=== PATIENT | female | born 1955 | race Caucasian/White ===

== ENCOUNTER 2017-10-10 15:36 | Inpatient (IN) | payer BC, OTHER ==
[2017-10-10] MEDS ORDERED: Sodium Chloride 0.9% 10 ML Syringe FLUSH PRN (18:09)
[2017-10-10] MEDS ORDERED: Azithromycin 500 MG in Sodium Chloride 0.9% 250 ML IV ONE (18:14)
[2017-10-10] MEDS ORDERED: Albuterol/Ipratropium 3.0-0.5 MG/3 ML Neb Soln NEB ONE (18:14)
[2017-10-10] MEDS ORDERED: cefTRIAXone 1 GM Vial IVPUSH ONE (18:14)
--- NOTE | 2017-10-10 18:41 | EDM.PDOC ---
Scribed by Kaley Montoya 10/10/17 [id number] for Pal López MD ED HPI GENERAL MEDICAL PROBLEM - General Chief Complaint: Fever Stated Complaint: SICK [id number] Time Seen by Provider: 10/10/17 17:07 Source of Information: Reports: Patient, RN, RN Notes Reviewed History Limitations: Reports: No Limitations - History of Present Illness INITIAL COMMENTS - FREE TEXT/NARRATIVE: Patient presents with 4 day duration of worsening cough with recurrent fevers. Patient reports sharp chest pains with cough only. The cough is nonproductive. She reports feeling fatigued and has mildly decreased appetite.She also admits to sore throat for the past couple of days. Denies headache, abdominal pain, nausea, vomiting or diarrhea. Duration: Getting Worse Location: Reports: Chest Quality: Reports: Ache Severity: Moderate Improves with: Reports: None Worsens with: Reports: None Associated Symptoms: Reports: No Other Symptoms - Related Data Allergies Allergy/AdvReac Type Severity Reaction Status Date / Time codeine Allergy Cannot Verified 10/10/17 16:52 Remember letrozole Allergy Rash Verified 10/10/17 16:52 Home Meds: Home Meds Aspirin [Aspirin EC] 325 mg PO DAILY 05/21/14 [History] Calcium Carb & Citrate/Vit D3 [Calcium + Vitamin D3 Caplet] 1 tab PO DAILY 05/21 [History] Diltiazem HCl [Diltiazem ER] 1 tab PO DAILY 05/21/14 [History] Tamoxifen [Nolvadex] 1 tab PO DAILY 05/21/14 [History] atorvaSTATin Calcium [Atorvastatin Calcium] 1 tab PO DAILY 05/21/14 [History] Ibuprofen 200 mg PO ASDIRECTED PRN 10/10/17 [History] Past Medical History HEENT History: Reports: None Cardiovascular History: Reports: Afib, High Cholesterol Respiratory History: Reports: None Gastrointestinal History: Reports: None Genitourinary History: Reports: None Musculoskeletal History: Reports: None Neurological History: Reports: None Psychiatric History: Reports: None Endocrine/Metabolic History: Reports: None Hematologic History: Reports: None Immunologic History: Reports: None Oncologic (Cancer) History: Reports: Basal Cell Carcinoma Dermatologic History: Reports: None - Infectious Disease History Infectious Disease History: Reports: Chicken Pox, Measles, Mumps - Past Surgical History Head Surgeries/Procedures: Reports: None Female Surgical History: Reports: Mastectomy Social & Family History - Family History Family Medical History: Noncontributory - Tobacco Use Smoking Status *Q: Former Smoker Tobacco Use Within Last Twelve Months: Cigarettes Years of Tobacco use: 20 Packs/Tins Daily: 0.5 Month Tobacco Last Used: august Second Hand Smoke Exposure: No - Caffeine Use Caffeine Use: Reports: None - Alcohol Use Days Per Week of Alcohol Use: 3 Number of Drinks Per Day: 3 Total Drinks Per Week: 9 - Recreational Drug Use Recreational Drug Use: No ED ROS GENERAL - Review of Systems Review Of Systems: ROS reveals no pertinent complaints other than HPI. ED EXAM, GENERAL - Physical Exam Exam: See Below Exam Limited By: No Limitations General Appearance: Alert, WD/WN, No Apparent Distress Eye Exam: Bilateral Eye: Normal Inspection Ears: Normal External Exam, Normal Canal, Hearing Grossly Normal, Normal TMs Nose: Normal Inspection, Normal Mucosa, No Blood Throat/Mouth: Normal Lips, Normal Teeth, Normal Gums, Normal Voice, No Airway Compromise, Other (mild pharyngeal erythema) Head: Atraumatic, Normocephalic Neck: Normal Inspection, Supple, Non-Tender, Full Range of Motion Respiratory/Chest: No Respiratory Distress, No Accessory Muscle Use, Decreased Breath Sounds (in bilateral bases with bibasilar rhonchi left greater than right. ), Crackles, Rhonchi (bibasilar), Wheezing, Prolonged Expiration Cardiovascular: Normal Peripheral Pulses, Regular Rate, Rhythm, No Edema, No Gallop, No JVD, No Murmur, No Rub GI/Abdominal: Normal Bowel Sounds, Soft, Non-Tender, No Organomegaly, No Distention, No Abnormal Bruit, No Mass (Female) Exam: Deferred Rectal (Female) Exam: Deferred Back Exam: Normal Inspection, Full Range of Motion, NT Extremities: Normal Inspection, Normal Range of Motion, Non-Tender, Normal Capillary Refill, No Pedal Edema Neurological: Alert, Oriented, CN II-XII Intact, Normal Cognition, Normal Gait, Normal Reflexes, No Motor/Sensory Deficits Psychiatric: Normal Affect, Normal Mood Skin Exam: Warm, Dry, Intact, Normal Color, No Rash Course - Vital Signs Last Recorded V/S: Last Vital Signs Temp 36.6 C 10/10/17 16:48 Pulse 80 10/10/17 18:14 Resp 16 10/10/17 16:48 BP 139/69 10/10/17 16:48 Pulse Ox 98 10/10/17 18:14 - Orders/Labs/Meds Orders: Active Orders 24 hr Category Date Time Status Peripheral IV Care [RC] . DIRECTED Care 10/10/17 18:09 Active RT Aerosol Therapy [RC] ASDIRECTED Care 10/10/17 18:14 Active Chest 2V [CR] Stat Exams 10/10/17 17:55 Taken CULTURE BLOOD [BC] Stat Lab 10/10/17 18:20 Received CULTURE STREP A CONFIRMATION [] Stat Lab 10/10/17 17:05 Results STREP SCRN A RAPID W CULT CONF [] Stat Lab 10/10/17 17:05 Results Azithromycin [Zithromax] 500 mg Med 10/10/17 18:14 Active Sodium Chloride 0.9% [Normal Saline] 250 ml IV ONETIME Sodium Chloride 0.9% [Saline Flush] Med 10/10/17 18:09 Active 10 ml FLUSH ASDIRECTED PRN Peripheral IV Insertion Adult [OM.PC] Stat Oth 10/10/17 18:09 Ordered Medication Orders Azithromycin 500 mg/ Sodium (Chloride) 250 mls @ 250 mls/hr IV ONETIME ONE Stop: 10/10/17 19:13 Last Admin: 10/10/17 18:56 Dose: 250 mls/hr Sodium Chloride (Saline Flush) 10 ml FLUSH ASDIRECTED PRN PRN Reason: Keep Vein Open Last Admin: 10/10/17 18:56 Dose: 10 ml Labs: Laboratory Tests 10/10/17 10/10/17 10/10/17 Range/Units 18:20 18:20 18:20 WBC 10.1 H (5.0-10.0) 10^3/uL RBC 4.06 L (4.2-5.4) 10^6/uL Hgb 13.4 (12.0-16.0) g/dL Hct 39.9 (37.0-47.0) % MCV 98.3 (80-100) fL MCH 33.0 (27.0-34.0) pg MCHC 33.6 (33.0-35.0) g/dL Plt Count 141 L (150-450) 10^3/uL Neut % (Auto) 71.1 (42.2-75.2) % Lymph % (Auto) 18.1 L (20.5-50.1) % Wirt % (Auto) 7.4 (2-8) % Eos % (Auto) 3.0 (1.0-3.0) % Baso % (Auto) 0.4 (0.0-1.0) % Sodium 134 L (135-145) mmol/L Potassium 3.7 (3.6-5.0) mmol/L Chloride 101 (101-111) mmol/L Carbon Dioxide 22.0 (21.0-31.0) mmol/L Anion Gap 14.7 BUN 9 (7-18) mg/dL Creatinine 0.7 (0.6-1.3) mg/dL Est Cr Clr Drug Dosing 77.01 mL/min Estimated GFR (MDRD) > 60 BUN/Creatinine Ratio 12.85 Glucose 103 (74-105) mg/dL Lactic Acid 1.0 (0.5-2.2) mmol/L Calcium 8.8 (8.4-10.2) mg/dl Total Bilirubin 1.0 (0.2-1.0) mg/dL AST 52 H (10-42) IU/L ALT 55 (10-60) IU/L Alkaline Phosphatase 51 (42-121) IU/L Total Protein 7.5 (6.7-8.2) g/dl Albumin 4.1 (3.2-5.5) g/dl Globulin 3.4 Albumin/Globulin Ratio 1.21 Rapid strep: Negative. Meds: Medications Generic Name Dose Route Start Last Admin Trade Name Freq PRN Reason Stop Dose Admin Azithromycin 500 mg/ Sodium 250 mls @ 250 mls/hr 10/10/17 18:14 10/10/17 18: 56 Chloride IV 10/10/17 19:13 250 mls/hr ONETIME ONE Administration Sodium Chloride 10 ml 10/10/17 18:09 10/10/17 18:56 Saline Flush FLUSH 10 ml ASDIRECTED PRN Administration Keep Vein Open Discontinued Medications Generic Name Dose Route Start Last Admin Trade Name Freq PRN Reason Stop Dose Admin Albuterol/Ipratropium 3 ml 10/10/17 18:14 10/10/17 18:20 Duoneb 3.0-0.5 Mg/3 Ml NEB 10/10/17 18:15 3 ml ONETIME ONE Administration Ceftriaxone Sodium 1 gm 10/10/17 18:14 10/10/17 18:55 Rocephin IVPUSH 10/10/17 18:15 1 gm ONETIME ONE Administration - Radiology Interpretation Free Text/Narrative:: Chest x-ray: SSN: -- : [id number] Study: XR CHEST 2 VIEWS Requesting Physician: Pal López Images: 2 Addl Studies: Provided Clinical History: Contrast: Contrast Medium: Contrast Amount: Contrast Method: CONFIDENTIALITY STATEMENT This report is intended only for use by the referring physician, and only in accordance with law. If you received this in error, call [phone]. Page 1 of 1 EXAM: XR Chest, 2 Views CLINICAL HISTORY: 62 years old, female; Signs and symptoms; Cough and dyspnea; Symptoms not specified TECHNIQUE: Frontal and lateral views of the chest. COMPARISON: No relevant prior studies available. FINDINGS: Lungs: The lungs hyperinflated. There is no focal consolidation, pleural fluid or pneumothorax. Pleural space: See above. Heart: The heart is normal in size. The thoracic aorta is normal in caliber. Mediastinum: Unremarkable. Bones/joints: Osseous structures are normal for age. IMPRESSION: COPD. No acute process. Thank you for allowing us to participate in the care of your patient. Dictated and Authenticated by: Eliza Cooley MD 10/10/2017 6:34 PM Central Time ([place] & [place]) Departure - Departure Time of Disposition: 19:05 (admitted to Dr. Aguilar) Disposition: Admitted As Inpatient 65 Condition: Serious Clinical Impression: Acute exacerbation of chronic obstructive pulmonary disease (COPD), Hypoxia Pneumonia Qualifiers: Pneumonia type: due to unspecified organism Laterality: left Lung location: lower lobe of lung Qualified Code(s): J18.1 - Lobar pneumonia, unspecified organism - Discharge Information Forms: ED Department Discharge - My Orders Last 24 Hours: My Active Orders 10/10/17 17:05 CULTURE STREP A CONFIRMATION [RM] Stat STREP SCRN A RAPID W CULT CONF [RM] Stat 10/10/17 17:55 Chest 2V [CR] Stat 10/10/17 18:09 Peripheral IV Care [RC] . DIRECTED Sodium Chloride 0.9% [Saline Flush] 10 ml FLUSH ASDIRECTED PRN Peripheral IV Insertion Adult [OM.PC] Stat 10/10/17 18:14 RT Aerosol Therapy [RC] ASDIRECTED Azithromycin [Zithromax] 500 mg Sodium Chloride 0.9% [Normal Saline] 250 ml IV ONETIME 10/10/17 18:20 CULTURE BLOOD [BC] Stat - Assessment/Plan Last 24 Hours: My Active Orders 10/10/17 17:05 CULTURE STREP A CONFIRMATION [RM] Stat STREP SCRN A RAPID W CULT CONF [RM] Stat 10/10/17 17:55 Chest 2V [CR] Stat 10/10/17 18:09 Peripheral IV Care [RC] . DIRECTED Sodium Chloride 0.9% [Saline Flush] 10 ml FLUSH ASDIRECTED PRN Peripheral IV Insertion Adult [OM.PC] Stat 10/10/17 18:14 RT Aerosol Therapy [RC] ASDIRECTED Azithromycin [Zithromax] 500 mg Sodium Chloride 0.9% [Normal Saline] 250 ml IV ONETIME 10/10/17 18:20 CULTURE BLOOD [BC] Stat I have read and agree with the documentation that has been completed regarding this visit. By signing this record, I attest that the documentation was completed in my physical presence and is an accurate record of the encounter.
[2017-10-10 18:48] LABS: CHLORIDE,CL 101 mmol/L (101-111); SODIUM,NA 134 mmol/L (135-145)
[2017-10-10] MEDS ORDERED: methylPREDNISolone Sodium Succinate 125 MG/2 ML SDV IVPUSH ONE (19:07)
[2017-10-10] MEDS ORDERED: Acetaminophen 325 MG Tab PO PRN (21:01)
[2017-10-10] MEDS ORDERED: oxyCODONE 5 MG Tab PO PRN (21:01)
[2017-10-10] MEDS ORDERED: Ondansetron 4 MG Tab.DIS PO PRN (21:01)
[2017-10-10] MEDS ORDERED: Ibuprofen 200 MG Tab PO PRN (21:04)
[2017-10-10] MEDS ORDERED: Insulin Aspart 100 Units/ML 3 ML Pen SUBCUT SCH (21:15)
[2017-10-10] MEDS: atorvaSTATin 20 MG Tab PO SCH (21:34)
[2017-10-10] MEDS: Levofloxacin/Dextrose 5%-Water 500 MG in Premix Bag 1 BAG IV SCH (21:34)
--- NOTE | 2017-10-11 00:42 | HP ---
CHIEF COMPLAINT: Increasing cough and chest discomfort. HISTORY OF PRESENTING ILLNESS: Mrs. Roxy Lucas is a 62-year-old female with medical history significant for hypertension, hyperlipidemia, history of paroxysmal atrial fibrillation on aspirin, history of breast cancer on the right side status post modified radical mastectomy with no adjuvant chemo radiation therapy. [place] lymph node biopsy was negative at that time and currently on tamoxifen, presented to the ER with complaints of having cough and increasing shortness of breath for the last few days. The patient claims that she has been sick for the last 4 to 5 days since . She was having this dry hacking cough associated with chest discomfort, which is dull in nature, also complains of mild shortness of breath aggravated on exertion, but while in the emergency room, the patient was noted to be mildly hypoxic and was noted to have wheezing consistent with acute bronchitis needing admission to the hospital. She denies any complaints of fevers, but complains of having chills. She works in the college. No history of recent travel. No history of sick contacts. The patient denies any nausea or vomiting. No diarrhea. No abdominal pain. No chest pain at this time. The patient denied any history of chest pains on exertion. No history of dyspnea on exertion. No history of orthopnea or paroxysmal nocturnal dyspnea. The patient denied any history of hematemesis, hematochezia, or melanotic stools. Normal bowel and bladder habits otherwise. REVIEW OF SYSTEMS: A complete review of system including skin, ear, nose, and throat; cardiovascular system, respiratory system, gastrointestinal system, genitourinary system, hematology, oncology, neurology, allergy, immunology, and constitutional were all evaluated. PAST MEDICAL HISTORY: Significant for hypertension, type 2 diabetes mellitus, history of tobacco smoking in the past, history of breast cancer on the right side, on tamoxifen; and paroxysmal atrial fibrillation. 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 FAMILY HISTORY: Significant for cancer, diabetes, hypertension in her mother, and history of thyroid disease in her sister, brother with melanoma, and maternal grandfather with diabetes. SOCIAL HISTORY: The patient had history of smoking in the past but quit smoking since 2007. No history of alcohol intake. No history of substance use. ALLERGIES: The patient is noted to have allergies to codeine and letrozole which causes rash. HOME MEDICATIONS: Include: 1. Tamoxifen 1 tablet daily. 2. Ibuprofen 200 mg as needed. 3. Diltiazem 1 tablet daily. 4. Calcium carbonate/vitamin D one tablet daily. 5. Aspirin 325 mg daily. 6. Lipitor one tablet daily. PHYSICAL EXAMINATION: Vital Signs: Temperature of 99.2, pulse of 73, blood pressure of 138/58, respiratory rate of 20, saturating at 90%. General Appearance: The patient is well oriented to time, place, and person. Follows commands spontaneously. Cardiovascular System: S1, S2 heard with normal intensity. No gallops. Respiratory System: Bilateral wheeze noted. Crepitations at the bases more so on the right side. Abdomen: Soft. Bowel sounds positive. Nontender. No rigidity. No guarding. No rebound tenderness. Extremities: No edema in bilateral lower extremities. Neurology: No gross focal neurological deficits. LABORATORY DATA: 1. WBC 10.1, hemoglobin 13.4, hematocrit 39.9, platelet count 141. 2. Sodium 134, potassium 3.7, chloride 101, bicarb 22, BUN 9, creatinine 0.7, glucose 103, lactic acid 1. ASSESSMENT: 1. Pneumonia. 2. Acute bronchitis. 3. Hypertension. 4. Type 2 diabetes mellitus. 5. Hyperlipidemia. PLAN: 1. Pneumonia. The patient is noted to have mild infiltrates on the chest x- ray, mostly on the right lower lobe and the patient noted to have leukocytosis. The patient was started on antibiotic with IV Levaquin, and we will closely follow with sputum cultures and blood cultures. 2. Acute bronchitis. The patient is noted to have mild wheeze on initial presentation, and she continues to have mild wheeze at this time. We will have her on oral prednisone, and we will have her on DuoNeb and Pulmicort nebulizer. Due to her chronic history of smoking in the past, the patient could have underlying bronchitis, we will closely follow. 3. Acute hypoxia. The patient was noted to be hypoxic on initial presentation to the ER. We will continue supplemental oxygen to maintain a saturation of 95%. 4. Hypertension. The patient's blood pressure seems to be in an acceptable range. Continue the diltiazem. She has a history of paroxysmal atrial fibrillation. 5. Type 2 diabetes mellitus. This seems to be borderline. The patient is not on any active agents at this time, but since we are going to treat her with oral prednisone, she might have some elevated blood sugars, so we will check her fingersticks with each meal. Have her on supplemental scale insulin as needed. 6. Code status. The patient wants to be full code. Discussed with Dr. Lóepz, ER physician regarding the plan of care. Discussed with the patient regarding the plan of care. Reviewed the labs and medications. Reviewed the old charts. [facility] /[id number]
[2017-10-11] MEDS: Albuterol/Ipratropium 3.0-0.5 MG/3 ML Neb Soln NEB SCH ×4 (01:14→18:16)
[2017-10-11] MEDS: Insulin Aspart 100 Units/ML 3 ML Pen SUBCUT SCH ×4 (08:59→21:08)
[2017-10-11] MEDS: predniSONE 20 MG Tab PO SCH (09:00)
[2017-10-11] MEDS: Enoxaparin 40 MG/0.4 ML Syringe SUBCUT SCH (09:00)
[2017-10-11] MEDS: Diltiazem 120 MG Cap.CD PO SCH (09:00)
[2017-10-11] MEDS: Aspirin 325 MG Tab.EC PO SCH (09:00)
[2017-10-11] MEDS: Tamoxifen 10 MG Tab PO SCH (09:00)
[2017-10-11] MEDS: Calcium Carbonate/Vitamin D3 1250 MG-200 Unit Tab PO SCH (09:00)
[2017-10-11] MEDS: Budesonide 0.5 MG/2 ML Neb Susp NEB SCH ×2 (09:36→18:16)
[2017-10-11] MEDS ORDERED: Insulin Aspart 100 Units/ML 3 ML Pen SUBCUT ONE (13:38)
--- NOTE | 2017-10-11 13:39 | PCM.PN ---
- General Info Date of Service: 10/11/17 Admission Dx/Problem (Free Text): Pneumonia Subjective Update: Patient stated that she is feeling much better. She said that her shortness breath, cough, appetite, wheezing improved. She denies nausea, vomiting, fever, chills, chest pain, abdominal pain, urinary symptoms, unilateral weakness/ numbness/tingling, lower extremities edema, any other symptoms or concerns. - Patient Data Vitals - Most Recent: Last Vital Signs Temp 36.9 C 10/11/17 11:00 Pulse 79 10/11/17 13:16 Resp 20 10/11/17 11:00 BP 111/69 10/11/17 11:00 Pulse Ox 99 10/11/17 13:16 Weight - Most Recent: 74.899 kg I&O - Last 24 Hours: Intake & Output 10/10/17 10/11/17 10/11/17 22:59 06:59 14:59 Intake Total 100 510 565 Output Total 400 Balance 100 510 165 Lab Results Last 24 Hours: Laboratory Results - last 24 hr 10/10/17 10/11/17 10/11/17 Range/Units 23:31 08:00 11:06 POC Glucose 173 H 228 H 273 H (70-105) mg/dl [place] Results Last 24 Hours: Microbiology 10/10/17 23:45 Gram Stain - Final Sputum - Expectorated Med Orders - Current: Current Medications Acetaminophen (Tylenol) 650 mg PO Q4H PRN PRN Reason: Pain (Mild 1-3)/fever Albuterol/Ipratropium (Duoneb 3.0-0.5 Mg/3 Ml) 3 ml NEB Q6HRRT [facility] Last Admin: 10/11/17 13:16 Dose: 3 ml Aspirin (Ecotrin) 325 mg PO DAILY [facility] Last Admin: 10/11/17 09:00 Dose: 325 mg Atorvastatin Calcium (Lipitor) 20 mg PO BEDTIME [facility] Last Admin: 10/10/17 21:34 Dose: 20 mg Budesonide (Pulmicort) 0.5 mg NEB BIDRT [facility] Last Admin: 10/11/17 09:36 Dose: 0.5 mg Calcium Carbonate (Calcium Carbonate/Vitamin D 1250 Mg-200 Unit) 1 tab PO DAILY [facility] Last Admin: 10/11/17 09:00 Dose: 1 tab Diltiazem HCl (Cardizem Cd) 120 mg PO DAILY [facility] Last Admin: 10/11/17 09:00 Dose: 120 mg Enoxaparin Sodium (Lovenox) 40 mg SUBCUT DAILY [facility] Last Admin: 10/11/17 09:00 Dose: 40 mg Levofloxacin/Dextrose 500 mg/ (Premix) 100 mls @ 100 mls/hr IV Q24H [facility] Last Admin: 10/10/17 21:34 Dose: 100 mls/hr Ibuprofen (Motrin) 200 mg PO WITHSNACKS PRN PRN Reason: Fever Insulin Aspart (Novolog) 0 unit SUBCUT QID [place] PRN Reason: Protocol Last Admin: 10/11/17 12:22 Dose: 6 units Ondansetron HCl (Zofran Odt) 4 mg PO Q4H PRN PRN Reason: nausea, able to take PO Oxycodone HCl (Oxycodone) 5 mg PO Q4H PRN PRN Reason: Pain (moderate 4-6) Prednisone (Prednisone) 20 mg PO WITHBREAKFAST [facility] Stop: 10/16/17 08:01 Last Admin: 10/11/17 09:00 Dose: 20 mg Sodium Chloride (Saline Flush) 10 ml FLUSH ASDIRECTED PRN PRN Reason: Keep Vein Open Last Admin: 10/10/17 18:56 Dose: 10 ml Tamoxifen Citrate (Nolvadex) 20 mg PO DAILY [facility] Last Admin: 10/11/17 09:00 Dose: 20 mg Discontinued Medications Albuterol/Ipratropium (Duoneb 3.0-0.5 Mg/3 Ml) 3 ml NEB ONETIME ONE Stop: 10/10/17 18:15 Last Admin: 10/10/17 18:20 Dose: 3 ml Ceftriaxone Sodium (Rocephin) 1 gm IVPUSH ONETIME ONE Stop: 10/10/17 18:15 Last Admin: 10/10/17 18:55 Dose: 1 gm Azithromycin 500 mg/ Sodium (Chloride) 250 mls @ 250 mls/hr IV ONETIME ONE Stop: 10/10/17 19:13 Last Admin: 10/10/17 18:56 Dose: 250 mls/hr Insulin Aspart (Novolog) 0 unit SUBCUT ASDIRECTED [facility] PRN Reason: Protocol Methylprednisolone Sodium Succinate (Solu-Medrol) 125 mg IVPUSH ONETIME ONE Stop: 10/10/17 19:08 Last Admin: 10/10/17 19:14 Dose: 125 mg - Exam General: Alert, Oriented, Cooperative, No Acute Distress. No: Mild Distress, Moderate Distress, Severe Distress, Sedated, Lethargic HEENT: Pupils Equal, Pupils Reactive, EOMI, Mucous Membr. Moist/[place]: Supple, Trachea Midline, No JVD Lungs: Normal Respiratory Effort, Decreased Breath Sounds (Mildly, globally), Rhonchi, Wheezing (Sporadic). No: Crackles, Rales Cardiovascular: Regular Rate, Regular Rhythm GI/Abdominal Exam: Normal Bowel Sounds, Non-Tender, No Organomegaly, No Distention Extremities: Normal Inspection, Normal Range of Motion, Non-Tender, No Pedal Edema, Normal Capillary Refill Neurological: No New Focal Deficit Psy/Mental Status: Alert, Normal Affect, Normal Mood - Problem List & Annotations (1) Acute exacerbation of chronic obstructive pulmonary disease (COPD) SNOMED Code(s): 591463532 Code(s): J44.1 - CHRONIC OBSTRUCTIVE PULMONARY DISEASE W (ACUTE) EXACERBATION Status: Acute Current Visit: Yes (2) Hypoxia SNOMED Code(s): 724625209 Code(s): R09.02 - HYPOXEMIA Status: Resolved Current Visit: Yes (3) Pneumonia SNOMED Code(s): 388585575 Code(s): J18.9 - PNEUMONIA, UNSPECIFIED ORGANISM Status: Acute Current Visit: Yes Qualifiers: Pneumonia type: due to unspecified organism Laterality: left Lung location: lower lobe of lung Qualified Code(s): J18.1 - Lobar pneumonia, unspecified organism - Problem List Review Problem List Initiated/Reviewed/Updated: Yes - My Orders Last 24 Hours: My Active Orders 10/12/17 05:11 BASIC METABOLIC PANEL,BMP [CHEM] AM CBC WITH AUTO DIFF [HEME] AM - Plan Plan:: 62-year-old female who has history of smoking half a pack per day for 20 years but quit in 2007 presents with pneumonia and clinical picture of COPD exacerbation -Continue Levaquin -Continue prednisone -Continue DuoNeb -Since she isn't on prednisone and she has borderline diabetes mellitus then will start on sliding scale insulin of NovoLog of low regimen Lovenox for DVT prophylaxis
[2017-10-11] MEDS: Levofloxacin/Dextrose 5%-Water 500 MG in Premix Bag 1 BAG IV SCH (21:08)
[2017-10-11] MEDS: atorvaSTATin 20 MG Tab PO SCH (21:08)
[2017-10-12] MEDS: Albuterol/Ipratropium 3.0-0.5 MG/3 ML Neb Soln NEB SCH ×3 (01:17→13:30)
[2017-10-12 06:50] LABS: CHLORIDE,CL 102 mmol/L (101-111); SODIUM,NA 138 mmol/L (135-145)
[2017-10-12] MEDS: Budesonide 0.5 MG/2 ML Neb Susp NEB SCH (07:52)
[2017-10-12] MEDS: Enoxaparin 40 MG/0.4 ML Syringe SUBCUT SCH (09:01)
[2017-10-12] MEDS: Aspirin 325 MG Tab.EC PO SCH (09:02)
[2017-10-12] MEDS: Diltiazem 120 MG Cap.CD PO SCH (09:02)
[2017-10-12] MEDS: Tamoxifen 10 MG Tab PO SCH (09:02)
[2017-10-12] MEDS: Calcium Carbonate/Vitamin D3 1250 MG-200 Unit Tab PO SCH (09:03)
[2017-10-12] MEDS: Insulin Aspart 100 Units/ML 3 ML Pen SUBCUT SCH ×2 (09:03→12:19)
[2017-10-12] MEDS: predniSONE 20 MG Tab PO SCH (09:03)
--- NOTE | 2017-10-12 10:32 | PCM.DCSUM1 ---
Discharge Summary - Hospital Course Free Text/Narrative:: 62-year-old female with past medical history including but not limited to hypertension borderline diabetes mellitus history of tobacco use presented to the emergency room with shortness breath, cough for few days prior to admission. Chest x-ray was concerning for infiltrate on the right lower lobe. Her WBC were elevated. Patient was diagnosed with pneumonia and was started on Levaquin 500 mg IV and received 2 doses so far. She was started on prednisone 20 mg by mouth daily. Her sputum culture grew normal oli. Blood cultures did not grow bacteria after 1 day. Rapid strep is negative. Patient dramatically felt much better since yesterday. Today she says she is back to her baseline. On exam she still have decreased in sounds globally but fair air exchange. She has some sporadic wheezing. I recommended patient states at least until tomorrow to continue on the treatment and watch her WBC. Her white counts increased today to 17.5. However this could be due to her steroids. Patient declined and she requested to be discharged home. Patient was informed that going home today may put her at risk of worsening of her breathing and pneumonia which can cause respiratory failure and sepsis and . Patient verbalized understanding and she still wants to go home because she feels back to normal. She was told not to go back to work until next Wednesday. She was prescribed DuoNeb, prednisone, Levaquin, sliding scale insulin and informed to see her primary care provider by Wednesday or Wednesday. She was advised to bring her blood glucose readings to her primary care provider appointment and at that time they will make a decision whether to continue an insulin or not. She has been on high regimen of sliding scale insulin of NovoLog and yesterday required 6 units in morning, 9 units afternoon, 9 units evening. Patient stated that she used to give insulin to her in the past and she knows how to take her on insulin and check her blood glucose. - Discharge Data Discharge Date: 10/12/17 Discharge Disposition: Home, Self-Care 01 Condition: Fair - Discharge Diagnosis/Problem(s) (1) Acute exacerbation of chronic obstructive pulmonary disease (COPD) SNOMED Code(s): 518256857 ICD Code: J44.1 - CHRONIC OBSTRUCTIVE PULMONARY DISEASE W (ACUTE) EXACERBATION Status: Acute Current Visit: Yes (2) Hypoxia SNOMED Code(s): 743801150 ICD Code: R09.02 - HYPOXEMIA Status: Resolved Current Visit: Yes (3) Pneumonia SNOMED Code(s): 399755459 ICD Code: J18.9 - PNEUMONIA, UNSPECIFIED ORGANISM Status: Acute Current Visit: Yes Qualifiers: Pneumonia type: due to unspecified organism Laterality: left Lung location: lower lobe of lung Qualified Code(s): J18.1 - Lobar pneumonia, unspecified organism - Patient Instructions Diet: Heart Healthy Diet, Diabetic Diet Activity: As Tolerated Showering/Bathing: December Shower Notify Provider of: Fever - Discharge Plan Prescriptions/Med Rec: Albuterol/Ipratropium [DuoNeb 3.0-0.5 MG/3 ML] 3 ml NEB Q6HRRT PRN #30 neb PRN Reason: shortness of breath, wheezing Insulin Aspart [NovoLOG] See Protocol SQ WITHMEALSANDBED 5 Days pen Levofloxacin [Levaquin] 500 mg PO DAILY 5 Days #5 tab Prednisone [IJD: predniSONE] 20 mg PO WITHBREAKFAST 4 Days #4 tablet Home Medications: Home Meds Aspirin [Aspirin EC] 325 mg PO DAILY 05/21/14 [History] Calcium Carb & Citrate/Vit D3 [Calcium + Vitamin D3 Caplet] 1 tab PO DAILY 05/21 [History] Diltiazem HCl [Diltiazem 12Hr ER] 1 tab PO DAILY 05/21/14 [History] Tamoxifen [Nolvadex] 1 tab PO DAILY 05/21/14 [History] atorvaSTATin Calcium [Atorvastatin Calcium] 1 tab PO DAILY 05/21/14 [History] Albuterol/Ipratropium [DuoNeb 3.0-0.5 MG/3 ML] 3 ml NEB Q6HRRT PRN #30 neb 10/12 [Rx] Insulin Aspart [NovoLOG] See Protocol SQ WITHMEALSANDBED 5 Days pen 10/12/17 [ Rx] Levofloxacin [Levaquin] 500 mg PO DAILY 5 Days #5 tab 10/12/17 [Rx] Prednisone [IJD: predniSONE] 20 mg PO WITHBREAKFAST 4 Days #4 tablet 10/12/17 [ Rx] Forms: ED Department Discharge Referrals: PCP,None [Primary Care Provider] - - General Info Admission Dx/Problem (Free Text: Pneumonia Subjective Update: Patient stated that she is feeling much better. She said that her shortness breath, cough, appetite, wheezing improved. She denies nausea, vomiting, fever, chills, chest pain, abdominal pain, urinary symptoms, unilateral weakness/ numbness/tingling, lower extremities edema, any other symptoms or concerns. - Patient Data Vitals - Most Recent: Last Vital Signs Temp 37.0 C 10/12/17 08:24 Pulse 68 10/12/17 09:02 Resp 20 10/12/17 08:24 BP 116/59 L 10/12/17 09:02 Pulse Ox 94 L 10/12/17 08:24 Weight - Most Recent: 74.899 kg I&O - Last 24 hours: Intake & Output 10/11/17 10/12/17 10/12/17 22:59 06:59 14:59 Intake Total 443 420 Output Total 400 Balance 43 420 Lab Results - Last 24 hrs: Laboratory Results - last 24 hr 10/11/17 10/11/17 10/11/17 Range/Units 11:06 16:50 20:35 WBC (5.0-10.0) 10^3/uL RBC (4.2-5.4) 10^6/uL Hgb (12.0-16.0) g/dL Hct (37.0-47.0) % MCV (80-100) fL MCH (27.0-34.0) pg MCHC (33.0-35.0) g/dL Plt Count (150-450) 10^3/uL Neut % (Auto) (42.2-75.2) % Lymph % (Auto) (20.5-50.1) % Brooke % (Auto) (2-8) % Eos % (Auto) (1.0-3.0) % Baso % (Auto) (0.0-1.0) % Add Manual Diff Neutrophils % (Manual) (42-75) % Band Neutrophils % % Lymphocytes % (Manual) (20-50) % Monocytes % (Manual) (2-8) % Sodium (135-145) mmol/L Potassium (3.6-5.0) mmol/L Chloride (101-111) mmol/L Carbon Dioxide (21.0-31.0) mmol/L Anion Gap BUN (7-18) mg/dL Creatinine (0.6-1.3) mg/dL Est Cr Clr Drug Dosing mL/min Estimated GFR (MDRD) Glucose (74-105) mg/dL POC Glucose 273 H 252 H 262 H (70-105) mg/dl Calcium (8.4-10.2) mg/dl 10/12/17 10/12/17 10/12/17 Range/Units 06:20 06:20 07:57 WBC 17.5 H (5.0-10.0) 10^3/uL RBC 3.62 L (4.2-5.4) 10^6/uL Hgb 11.9 L D (12.0-16.0) g/dL Hct 35.8 L (37.0-47.0) % MCV 98.9 (80-100) fL MCH 32.9 (27.0-34.0) pg MCHC 33.2 (33.0-35.0) g/dL Plt Count 155 (150-450) 10^3/uL Neut % (Auto) 79.7 H (42.2-75.2) % Lymph % (Auto) 11.7 L (20.5-50.1) % Brooke % (Auto) 8.5 H (2-8) % Eos % (Auto) 0.0 L (1.0-3.0) % Baso % (Auto) 0.1 (0.0-1.0) % Add Manual Diff Yes Neutrophils % (Manual) 75 (42-75) % Band Neutrophils % 10 % Lymphocytes % (Manual) 9 L (20-50) % Monocytes % (Manual) 6 (2-8) % Sodium 138 (135-145) mmol/L Potassium 4.5 (3.6-5.0) mmol/L Chloride 102 (101-111) mmol/L Carbon Dioxide 27.0 (21.0-31.0) mmol/L Anion Gap 13.5 BUN 12 (7-18) mg/dL Creatinine 0.7 (0.6-1.3) mg/dL Est Cr Clr Drug Dosing 77.01 mL/min Estimated GFR (MDRD) > 60 Glucose 128 H (74-105) mg/dL POC Glucose 107 H (70-105) mg/dl Calcium 8.6 (8.4-10.2) mg/dl CARIDAD Results - Last 24 hrs: Microbiology 10/10/17 23:45 Gram Stain - Final Sputum - Expectorated Sputum Culture - Preliminary NORMAL RESPIRATORY OLI 1 DAY Med Orders - Current: Current Medications Acetaminophen (Tylenol) 650 mg PO Q4H PRN PRN Reason: Pain (Mild 1-3)/fever Albuterol/Ipratropium (Duoneb 3.0-0.5 Mg/3 Ml) 3 ml NEB Q6HRRT [facility] Last Admin: 10/12/17 07:52 Dose: 3 ml Aspirin (Ecotrin) 325 mg PO DAILY [facility] Last Admin: 10/12/17 09:02 Dose: 325 mg Atorvastatin Calcium (Lipitor) 20 mg PO BEDTIME [facility] Last Admin: 10/11/17 21:08 Dose: 20 mg Budesonide (Pulmicort) 0.5 mg NEB BIDRT [facility] Last Admin: 10/12/17 07:52 Dose: 0.5 mg Calcium Carbonate (Calcium Carbonate/Vitamin D 1250 Mg-200 Unit) 1 tab PO DAILY [facility] Last Admin: 10/12/17 09:03 Dose: 1 tab Diltiazem HCl (Cardizem Cd) 120 mg PO DAILY [facility] Last Admin: 10/12/17 09:02 Dose: 120 mg Enoxaparin Sodium (Lovenox) 40 mg SUBCUT DAILY [facility] Last Admin: 10/12/17 09:01 Dose: 40 mg Levofloxacin/Dextrose 500 mg/ (Premix) 100 mls @ 100 mls/hr IV Q24H [facility] Last Admin: 10/11/17 21:08 Dose: 100 mls/hr Ibuprofen (Motrin) 200 mg PO WITHSNACKS PRN PRN Reason: Fever Insulin Aspart (Novolog) 0 unit SUBCUT QID [facility] PRN Reason: Protocol Last Admin: 10/12/17 09:03 Dose: Not Given Ondansetron HCl (Zofran Odt) 4 mg PO Q4H PRN PRN Reason: nausea, able to take PO Oxycodone HCl (Oxycodone) 5 mg PO Q4H PRN PRN Reason: Pain (moderate 4-6) Prednisone (Prednisone) 20 mg PO WITHBREAKFAST [facility] Stop: 10/16/17 08:01 Last Admin: 10/12/17 09:03 Dose: 20 mg Sodium Chloride (Saline Flush) 10 ml FLUSH ASDIRECTED PRN PRN Reason: Keep Vein Open Last Admin: 10/10/17 18:56 Dose: 10 ml Tamoxifen Citrate (Nolvadex) 20 mg PO DAILY [facility] Last Admin: 10/12/17 09:02 Dose: 20 mg Discontinued Medications Albuterol/Ipratropium (Duoneb 3.0-0.5 Mg/3 Ml) 3 ml NEB ONETIME ONE Stop: 10/10/17 18:15 Last Admin: 10/10/17 18:20 Dose: 3 ml Ceftriaxone Sodium (Rocephin) 1 gm IVPUSH ONETIME ONE Stop: 10/10/17 18:15 Last Admin: 10/10/17 18:55 Dose: 1 gm Azithromycin 500 mg/ Sodium (Chloride) 250 mls @ 250 mls/hr IV ONETIME ONE Stop: 10/10/17 19:13 Last Admin: 10/10/17 18:56 Dose: 250 mls/hr Insulin Aspart (Novolog) 0 unit SUBCUT ASDIRECTED [facility] PRN Reason: Protocol Insulin Aspart (Novolog) 0 unit SUBCUT ONETIME ONE PRN Reason: Protocol Stop: 10/11/17 13:39 Last Admin: 10/11/17 13:46 Dose: Not Given Methylprednisolone Sodium Succinate (Solu-Medrol) 125 mg IVPUSH ONETIME ONE Stop: 10/10/17 19:08 Last Admin: 10/10/17 19:14 Dose: 125 mg - Exam General: Reports: Alert, Oriented, Cooperative, No Acute Distress. Denies: Mild Distress, Moderate Distress, Severe Distress, Sedated, Lethargic, Obtunded HEENT: Reports: Pupils Equal, Pupils Reactive, EOMI, Mucous Membr. Moist/[place] Neck: Reports: Supple, Trachea Midline, No JVD Lungs: Reports: Clear to Auscultation, Normal Respiratory Effort, Decreased Breath Sounds (Globally but fair air exchange). Denies: Crackles Cardiovascular: Reports: Regular Rate, Regular Rhythm GI/Abdominal Exam: Normal Bowel Sounds, Soft, Non-Tender, No Organomegaly, No Distention, No Abnormal Bruit, No Mass (Female) Exam: Deferred Rectal (Female) Exam: Deferred Back Exam: Reports: Normal Inspection, Full Range of Motion. Denies: CVA Tenderness (L), CVA Tenderness (R) Extremities: Normal Inspection, Normal Range of Motion, Non-Tender, No Pedal Edema, Normal Capillary Refill Skin: Reports: Warm, Dry, Intact Neurological: Reports: No New Focal Deficit Psy/Mental Status: Reports: Alert, Normal Affect, Normal Mood. Denies: Labile Mood, Anxious, Depressed, Hallucinations, Withdrawal Symptoms *Q Meaningful Use (DIS) - VTE *Q VTE Criteria *Q: - Stroke *Q Stroke Criteria *Q: - AMI *Q AMI Criteria *Q:
[2017-10-12 14:30] VITALS: BP 115/62
== END 2017-10-12 15:11 | disposition home or self-care (01) | DRG 190 ==
LOC: DL.ED 15:36 → DL.MS 19:39 → UNDOADMIN 19:39 → DL.MS 21:01
PROVIDERS: ADMIT Internal Medicine; ATTEND Internal Medicine
DX: J44.0 Chronic obstructive pulmonary disease with (acute) lower respiratory infection (principal); J18.9 Pneumonia, unspecified organism; J44.1 Chronic obstructive pulmonary disease with (acute) exacerbation; R09.02 Hypoxemia; E11.9 Type 2 diabetes mellitus without complications; Z87.891 Personal history of nicotine dependence; I48.91 Unspecified atrial fibrillation; E78.00 Pure hypercholesterolemia, unspecified; Z88.8 Allergy status to other drugs, medicaments and biological substances; Z79.82 Long term (current) use of aspirin; Z79.899 Other long term (current) drug therapy
CPT/HCPCS: 36415; 71046; 80048; 80053; 82962; 83605; 85025; 87040; 87070; 87081; 87205; 87430; 94640; 96365; 96375; 99285; A9270-GY; J0456; J0696; J1650; J1815-GY; J1956; J2930; J7050

== ENCOUNTER 2020-07-03 05:56 | Day surgery (SDC) | payer OTHER ==
[2020-07-03] MEDS ORDERED: fentaNYL 100 MCG/2 ML SDV IV ONE (05:57)
[2020-07-03] MEDS ORDERED: Midazolam 1 MG/ML 2 ML SDV IV ONE (05:57)
[2020-07-03] MEDS ORDERED: Midazolam 1 MG/ML 2 ML SDV ONE (06:13)
[2020-07-03] MEDS ORDERED: fentaNYL 100 MCG/2 ML SDV ONE (06:13)
[2020-07-03] MEDS: Dextrose 5%-0.45% NaCl 1,000 ML IV SCH (06:20)
[2020-07-03] MEDS: fentaNYL 100 MCG/2 ML SDV IV ONE ×2 (06:56→06:57)
[2020-07-03] MEDS: Midazolam 1 MG/ML 2 ML SDV IV ONE ×2 (06:57→06:58)
--- NOTE | 2020-07-03 07:34 | OR ---
DATE: 07/03/2020 PROCEDURES: Esophagogastroduodenoscopy and multiple pinch biopsies. INSTRUMENT USED: [id number] Olympus video panendoscope. PREMEDICATIONS: No oral or topical anesthesia used. Fentanyl 100 mcg intravenous, Versed 2 mg intravenous. The procedure was done under pulse oximetry, BP recording, and court monitor. INDICATION: The patient with persistent nausea, dyspepsia, and progressive weight loss, on long-term aspirin. Recent CT suggestive of pyloric mass kind abnormality. Esophagogastroduodenoscopy is performed for detection of any active erosive lesions, Ramos esophagus and/or malignancy also under consideration, H pylori status to be determined, endoscopic hemostasis therapy if needed. PROCEDURE IN DETAIL: The scope was passed with ease. Adequate visualization of the esophagus was made from proximal to distal areas. No upper esophageal lesions identified. No distal esophageal stricture. No uphill or downhill esophageal varices. No Bren-Messina tear. No evidence of erosive esophagitis by Jay criteria. No esophageal polyp or tumor mass identified. Non- constricting Schatzki's ring was noted. Sliding hiatal hernia was present. No proximal gastric varices noted. Gastric fundus examination by retroflexion showed no polypoid lesions. No gastric ulcer, malignant mass, or vascular ectasia identified. Scattered erosions were noted in the antrum without bleeding from them. Duodenal bulb showed no ulcer. Visualized second part of the duodenum was unremarkable. Multiple pinch biopsies were taken from the gastric antrum and proximal body and sent for PyloriTek test for H pylori, and if negative in an hour, tissue is to be sent for histopathology. No bleeding was noted from any of the visualized areas at the completion of examination. Photographs were taken of the duodenal bulb, gastric antrum, fundus, and distal esophagus. IMPRESSION: 1. Non-constricting Schatzki's ring. 2. Sliding hiatal hernia. 3. Gastric antral erosions. The patient tolerated the procedure well. [facility] /[id number]
--- NOTE | 2020-07-03 09:19 | LETTER ---
07/03/2020 RE: DONNA ALMAGUER : 1955 Helena Bennett MD [facility] [address] [place] [address] Bennett: Ms. Donna Almaguer had esophagogastroduodenoscopy done this morning and she tolerated the procedure well. I herewith send a copy of the endoscopy note and photographs for your review. Thank you. Sincerely, [facility] /[id number]
[2020-07-03 10:01] VITALS: BP 99/62; PULSE 44
== END 2020-07-03 09:11 | disposition home or self-care (01) ==
LOC: DL.ENDO 05:56
PROVIDERS: ATTEND Internal Medicine Gastroenterology
DX: K25.9 Gastric ulcer, unspecified as acute or chronic, without hemorrhage or perforation (principal); K44.9 Diaphragmatic hernia without obstruction or gangrene; K22.2 Esophageal obstruction; I48.0 Paroxysmal atrial fibrillation; E11.9 Type 2 diabetes mellitus without complications; F12.90 Cannabis use, unspecified, uncomplicated; Z88.5 Allergy status to narcotic agent; Z88.8 Allergy status to other drugs, medicaments and biological substances; E78.5 Hyperlipidemia, unspecified; D69.6 Thrombocytopenia, unspecified; Z85.3 Personal history of malignant neoplasm of breast; Z90.10 Acquired absence of unspecified breast and nipple; Z87.01 Personal history of pneumonia (recurrent)
CPT/HCPCS: 87077; J2250; J3010; J7042

== ENCOUNTER 2020-07-09 09:04 | Emergency (ER) | payer OTHER ==
[2020-07-09 09:04] VITALS: BP 152/114
[~2020-07-09 09:04] MED LIST: Diltiazem 25 MG/5 ML SDV IVPUSH ONE
--- NOTE | 2020-07-09 09:11 | EDM.PDOC ---
ED HPI GENERAL MEDICAL PROBLEM - General Chief Complaint: Cardiovascular Problem Stated Complaint: AMBULANCE Time Seen by Provider: 07/09/20 09:10 Source of Information: Reports: Patient, EMS, EMS Notes Reviewed, RN, RN Notes Reviewed History Limitations: Reports: No Limitations - History of Present Illness INITIAL COMMENTS - FREE TEXT/NARRATIVE: Patient presents to the ED via EMS with complaints of palpitations and shortness of breath. She states she noted the palpitations upon awakening this morning and felt as if she could not adequately breath. The patient states she has a history of AFib that, "...comes and goes." She is currently on diltiazem XR 120mg BID, which she did not take this morning; she states her last dose was last night. She reports she has felt nauseas since last Wednesday (07/05/2020) after starting a PRN anxiolytic. She denies vision changes, headache, chest pain, dyspepsia, vomiting, or diarrhea. She reports she had gone through a lot of personal stress this past year and feels as though her symptoms may be due to stress. - Related Data Allergies Allergy/AdvReac Type Severity Reaction Status Date / Time codeine Allergy Other Verified 07/09/20 09:43 letrozole Allergy Rash Verified 07/09/20 09:43 Home Meds: Home Meds Aspirin [Aspirin EC] 325 mg PO DAILY 05/21/14 [History] Calcium Carb & Citrate/Vit D3 [Calcium + Vitamin D3 Caplet] 1 tab PO DAILY 05/21/14 [History] Tamoxifen [Nolvadex] 20 mg PO DAILY 05/21/14 [History] atorvaSTATin Calcium [Atorvastatin Calcium] 1 tab PO DAILY 05/21/14 [History] dilTIAZem HCL [Diltiazem 12Hr ER] 120 mg PO DAILY 05/21/14 [History] Insulin Aspart [NovoLOG] See Protocol SQ WITHMEALSANDBED 5 Days pen 10/12/17 [Rx] Cholecalciferol (Vitamin D3) [Vitamin D3] 1,000 units PO DAILY 07/02/20 [History] Omeprazole 20 mg PO DAILY 07/03/20 [History] Past Medical History HEENT History: Reports: Cataract Cardiovascular History: Reports: Afib, High Cholesterol, Hypertension Respiratory History: Reports: COPD Other Respiratory History: DENIES COPD 06/2020. 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 PRIMARY CUTANEOUS LYMPHOMA Dermatologic History: Reports: Other (See Below) Other Dermatologic History: Plasmacytosis right arm. HX OF THROMBOCYTOPENIA - Infectious Disease History Infectious Disease History: Reports: Chicken Pox, Measles, Mumps - Past Surgical History Head Surgeries/Procedures: Reports: None HEENT Surgical History: Reports: None Cardiovascular Surgical History: Reports: None Respiratory Surgical History: Reports: None GI Surgical History: Reports: Colonoscopy Female Surgical History: Reports: Breast Reconstruction, Mastectomy Other Female Surgeries/Procedures: right side mastectomy Endocrine Surgical History: Reports: None Neurological Surgical History: Reports: None Musculoskeletal Surgical History: Reports: None Oncologic Surgical History: Reports: None Dermatological Surgical History: Reports: None Social & Family History - Family History Family Medical History: No Pertinent Family History - Tobacco Use Tobacco Use Status *Q: Never Tobacco User - Caffeine Use Caffeine Use: Reports: Coffee - Recreational Drug Use Recreational Drug Use: No ED ROS GENERAL - Review of Systems Review Of Systems: Comprehensive ROS is negative, except as noted in HPI. ED EXAM, GENERAL - Physical Exam Exam: See Below Exam Limited By: No Limitations General Appearance: Alert, WD/WN, No Apparent Distress Eye Exam: Bilateral Eye: EOMI, Normal Inspection, PERRL Throat/Mouth: Normal Inspection, Normal Lips, Normal Teeth, Normal Gums, Normal Oropharynx, Normal Voice, No Airway Compromise Head: Atraumatic, Normocephalic Neck: Normal Inspection, Supple, Non-Tender, Full Range of Motion Respiratory/Chest: No Respiratory Distress, Lungs Clear, Normal Breath Sounds, No Accessory Muscle Use, Chest Non-Tender Cardiovascular: Normal Peripheral Pulses, No Edema, No Gallop, No Murmur, No Rub, Tachycardia, Irregularly Irregular Peripheral Pulses: 2+: Radial (L), Radial (R) GI/Abdominal: Normal Bowel Sounds, Soft, Non-Tender, No Distention, No Mass, Pelvis Stable Back Exam: Normal Inspection, Full Range of Motion Extremities: Normal Inspection, Normal Range of Motion, Non-Tender, No Pedal Edema, Normal Capillary Refill Neurological: Alert, Oriented, CN II-XII Intact, Normal Cognition, No Motor/Sensory Deficits Skin Exam: Warm, Dry, Intact, Normal Color, No Rash. No: Ecchymosis, Erythema, Mottled, Pallor, Petechiae #1 Interpretation EKG Date: 07/09/20 Time: 08:52 Rhythm: Other (AFib with RVR) Rate (Beats/Min): 151 Josephine: Normal P-Wave: Absent QRS: Normal ST-T: Normal QT: Normal Comparison: NA - No Prior EKG (AFib with RVR; PVCs) #2 Interpretation EKG Date: 07/09/20 Time: 12:06 Rhythm: Other (Sinus Gage) Rate (Beats/Min): 58 Josephine: Normal P-Wave: Present QRS: Normal ST-T: Normal QT: Normal Comparison: Change From Previous EKG (SB; No evidence of acute ischemia) Course - Vital Signs Last Recorded V/S: Last Vital Signs Temp 97.4 F 07/09/20 09:02 Pulse 64 07/09/20 10:15 Resp 19 07/09/20 09:02 BP 152/114 H 07/09/20 09:02 Pulse Ox 100 07/09/20 09:02 - Orders/Labs/Meds Orders: Active Orders 24 hr Category Date Time Status EKG Documentation Completion [RC] STAT Care 07/09/20 08:46 Active EKG Documentation Completion [RC] STAT Care 07/09/20 12:01 Ordered CULTURE BLOOD [BC] Stat Lab 07/09/20 08:46 Ordered UA RFX CARIDAD AND CULT IF INDIC [URIN] Stat Lab 07/09/20 08:46 Ordered Labs: Laboratory Tests 07/09/20 07/09/20 07/09/20 Range/Units 09:08 09:08 09:08 WBC 5.2 (5.0-10.0) 10^3/uL RBC 4.77 (4.2-5.4) 10^6/uL Hgb 15.6 D (12.0-16.0) g/dL Hct 44.5 (37.0-47.0) % MCV 93.3 D (80-100) fL MCH 32.7 (27.0-34.0) pg MCHC 35.1 H (33.0-35.0) g/dL Plt Count 167 (150-450) 10^3/uL Neut % (Auto) 62.4 (42.2-75.2) % Lymph % (Auto) 29.0 (20.5-50.1) % [place] % (Auto) 6.8 (2-8) % Eos % (Auto) 1.2 (1.0-3.0) % Baso % (Auto) 0.6 (0.0-1.0) % PT 13.3 H (9.0-12.0) SEC INR 1.4 H (0.9-1.2) APTT 25.0 (22.0-34.0) SEC Sodium 143 (136-145) mmol/L Potassium 3.8 (3.5-5.1) mmol/L Chloride 104 (98-107) mmol/L Carbon Dioxide 24 (21-32) mmol/L Anion Gap 18.8 H (7-13) mEq/L BUN 8 (7-18) mg/dL Creatinine 0.95 (0.55-1.02) mg/dL Est Cr Clr Drug Dosing TNP Estimated GFR (MDRD) 59 BUN/Creatinine Ratio 8.4 (No establ ref range) Glucose 153 H (74-99) mg/dL Lactic Acid (0.4-2.0) mmol/L Calcium 9.2 (8.5-10.1) mg/dL Magnesium 1.7 L (1.8-2.4) mg/dL Total Bilirubin 0.8 (0.2-1.0) mg/dL AST 43 H (15-37) U/L ALT 57 (14-59) U/L Alkaline Phosphatase 70 (46-116) U/L Troponin I < 0.017 (0.000-0.056) ng/mL Total Protein 7.5 (6.4-8.2) g/dL Albumin 4.0 (3.4-5.0) g/dL Globulin 3.5 Albumin/Globulin Ratio 1.1 SARS CoV-2 RNA Rapid ARYAN (NEGATIVE) 07/09/20 07/09/20 Range/Units 09:08 10:00 WBC (5.0-10.0) 10^3/uL RBC (4.2-5.4) 10^6/uL Hgb (12.0-16.0) g/dL Hct (37.0-47.0) % MCV (80-100) fL MCH (27.0-34.0) pg MCHC (33.0-35.0) g/dL Plt Count (150-450) 10^3/uL Neut % (Auto) (42.2-75.2) % Lymph % (Auto) (20.5-50.1) % [place] % (Auto) (2-8) % Eos % (Auto) (1.0-3.0) % Baso % (Auto) (0.0-1.0) % PT (9.0-12.0) SEC INR (0.9-1.2) APTT (22.0-34.0) SEC Sodium (136-145) mmol/L Potassium (3.5-5.1) mmol/L Chloride (98-107) mmol/L Carbon Dioxide (21-32) mmol/L Anion Gap (7-13) mEq/L BUN (7-18) mg/dL Creatinine (0.55-1.02) mg/dL Est Cr Clr Drug Dosing Estimated GFR (MDRD) BUN/Creatinine Ratio (No establ ref range) Glucose (74-99) mg/dL Lactic Acid 2.9 H* (0.4-2.0) mmol/L Calcium (8.5-10.1) mg/dL Magnesium (1.8-2.4) mg/dL Total Bilirubin (0.2-1.0) mg/dL AST (15-37) U/L ALT (14-59) U/L Alkaline Phosphatase (46-116) U/L Troponin I (0.000-0.056) ng/mL Total Protein (6.4-8.2) g/dL Albumin (3.4-5.0) g/dL Globulin Albumin/Globulin Ratio SARS CoV-2 RNA Rapid ARYAN Negative (NEGATIVE) Meds: Medications Discontinued Medications Generic Name Dose Route Start Last Admin Trade Name Freq PRN Reason Stop Dose Admin Diltiazem HCl 20 mg 07/09/20 08:52 07/09/20 09:09 Diltiazem IVPUSH 07/09/20 08:53 20 mg ONETIME ONE Administration Sodium Chloride 500 mls @ 999 mls/hr 07/09/20 10:03 07/09/20 10:21 Normal Saline IV 07/09/20 10:33 999 mls/hr .BOLUS ONE Administration - Re-Assessments/Exams Free Text/Narrative Re-Assessment/Exam: 07/09/20 Patient resting comfortably. HR currently 60s-80s following Cardizem 20mg IVP, SB to SR. She states her shortness of breath is much improved following resolution of tachy arrhythmia. Lactic 2.6, with a negative COVID swab. Will administer NS 1L bolus and reassess. 07/09/20 12:11 Patient continues to rest comfortably. Ambulated to the bathroom appropriately; denies s/s of pre-syncope, chest pain, or shortness of breath. Will discharge patient home. Instructed patient to take prescribed antiarrhythmic medications, as prescribed - counseled patient to not take AM dose of diltiazem as she received that dose here. Instructed patient to follow up with primary care provider regarding today's visit in 3-5 days. Departure - Departure Time of Disposition: 12:13 Disposition: Home, Self-Care 01 Condition: Good Clinical Impression: Paroxysmal atrial fibrillation with rapid ventricular response Instructions: Atrial Fibrillation, [id number] Forms: ED Department Discharge Additional Instructions: Do not take your AM dose of Cartia HT, as you received a dose this morning in the emergency room. You may continue taking this medication, as prescribed by your provider. Drink plenty of water to stay hydrated. Eat balanced meals throughout the day. Follow up with your primary care provider in 3-5 days regarding today's visit. Sepsis Event Note (ED) - Evaluation Sepsis Screening Result: No Definite Risk - Focused Exam Vital Signs: Vital Signs Temp Pulse Resp BP Pulse Ox 07/09/20 10:15 64 07/09/20 09:45 154 H 07/09/20 09:30 75 07/09/20 09:02 97.4 F 136 H 19 152/114 H 100 - My Orders Last 24 Hours: My Active Orders 07/09/20 08:46 EKG Documentation Completion [RC] STAT CULTURE BLOOD [BC] Stat UA RFX CARIDAD AND CULT IF INDIC [URIN] Stat 07/09/20 12:01 EKG Documentation Completion [RC] STAT - Assessment/Plan Last 24 Hours: My Active Orders 07/09/20 08:46 EKG Documentation Completion [RC] STAT CULTURE BLOOD [BC] Stat UA RFX CARIDAD AND CULT IF INDIC [URIN] Stat 07/09/20 12:01 EKG Documentation Completion [RC] STAT
[2020-07-09 09:38] LABS: ANION GAP 18.8 mEq/L (7-13); CHLORIDE,CL 104 mmol/L (98-107); SODIUM,NA 143 mmol/L (136-145)
[2020-07-09] MEDS ORDERED: Sodium Chloride 0.9% 500 ML IV ONE (10:03)
[2020-07-09 10:15] VITALS: PULSE 64
== END 2020-07-09 12:34 | disposition home or self-care (01) ==
LOC: DL.ED 09:04
DX: I48.0 Paroxysmal atrial fibrillation (principal); E78.00 Pure hypercholesterolemia, unspecified; I10 Essential (primary) hypertension; E11.9 Type 2 diabetes mellitus without complications; J44.9 Chronic obstructive pulmonary disease, unspecified; Z20.828 Contact with and (suspected) exposure to other viral communicable diseases; Z88.5 Allergy status to narcotic agent; Z88.8 Allergy status to other drugs, medicaments and biological substances; Z79.82 Long term (current) use of aspirin; Z79.4 Long term (current) use of insulin; Z79.899 Other long term (current) drug therapy
CPT/HCPCS: 36415; 80053; 83605; 83735; 84484; 85025; 85610; 85730; 87635; 93005; 96374; 99285; J3490; J7030; 93010; 99284; U0002

== ENCOUNTER 2022-02-01 21:22 | Emergency (ER) | payer MEDICARE, OTHER ==
[2022-02-02 00:06] LABS: ANION GAP 9.8 mEq/L (7-13); CHLORIDE,CL 107 mmol/L (98-107); SODIUM,NA 143 mmol/L (136-145)
[2022-02-02 00:20] VITALS: BP 136/70; PULSE 59
== END 2022-02-02 00:42 | disposition home or self-care (01) ==
LOC: EEVIPCON 21:22 → DL.ED 21:22
DX: M25.512 Pain in left shoulder (principal); M54.6 Pain in thoracic spine; E11.9 Type 2 diabetes mellitus without complications; I10 Essential (primary) hypertension; I48.91 Unspecified atrial fibrillation; J44.9 Chronic obstructive pulmonary disease, unspecified; Z87.891 Personal history of nicotine dependence; Z79.899 Other long term (current) drug therapy; Z79.82 Long term (current) use of aspirin; Z79.4 Long term (current) use of insulin; Z88.8 Allergy status to other drugs, medicaments and biological substances
CPT/HCPCS: 36415; 71045; 73020-LT; 80053; 84484; 85025; 85379; 85610; 93005; 93010; 99284; 99284-25

== ENCOUNTER 2022-02-17 08:19 | Emergency (ER) | payer MEDICARE, OTHER ==
[2022-02-17 08:32] VITALS: BP 140/72; PULSE 80
[2022-02-17] MEDS ORDERED: methylPREDNISolone Sodium Succinate 125 MG/2 ML SDV IM ONE (09:06)
== END 2022-02-17 10:13 | disposition home or self-care (01) ==
LOC: DL.ED 08:19
DX: M50.021 Cervical disc disorder at C4-C5 level with myelopathy (principal); M50.121 Cervical disc disorder at C4-C5 level with radiculopathy; I48.91 Unspecified atrial fibrillation; E78.00 Pure hypercholesterolemia, unspecified; I10 Essential (primary) hypertension; E11.9 Type 2 diabetes mellitus without complications; J44.9 Chronic obstructive pulmonary disease, unspecified; Z88.5 Allergy status to narcotic agent; Z88.8 Allergy status to other drugs, medicaments and biological substances
CPT/HCPCS: 72125; 96372; 99284; J2930

== ENCOUNTER 2023-08-22 12:39 | Emergency (ER) | payer MEDICARE, OTHER ==
[2023-08-22 13:04] VITALS: BP 142/99; PULSE 75
== END 2023-08-22 14:44 | disposition home or self-care (01) ==
LOC: DL.ED 12:39
DX: S52.592A Other fractures of lower end of left radius, initial encounter for closed fracture (principal); I10 Essential (primary) hypertension; J44.9 Chronic obstructive pulmonary disease, unspecified; E11.9 Type 2 diabetes mellitus without complications; E78.00 Pure hypercholesterolemia, unspecified; Z88.5 Allergy status to narcotic agent; Z88.8 Allergy status to other drugs, medicaments and biological substances; W00.0XXA Fall on same level due to ice and snow, initial encounter; Z79.899 Other long term (current) drug therapy
CPT/HCPCS: 29125; 73100-LT; 99283

== ENCOUNTER 2024-12-10 11:39 | Emergency (ER) | payer MEDICARE, OTHER ==
[2024-12-10 12:04] VITALS: BP 146/75; PULSE 85
[2024-12-10] MEDS: Take Home: Doxycycline 100 MG Cap, 4 Cap Pack PO ONE (12:08)
== END 2024-12-10 12:18 | disposition home or self-care (01) ==
LOC: DL.ED 11:39
DX: J18.9 Pneumonia, unspecified organism (principal); I10 Essential (primary) hypertension; I48.91 Unspecified atrial fibrillation; E11.9 Type 2 diabetes mellitus without complications; E78.00 Pure hypercholesterolemia, unspecified; J44.9 Chronic obstructive pulmonary disease, unspecified; M19.90 Unspecified osteoarthritis, unspecified site; Z88.8 Allergy status to other drugs, medicaments and biological substances; Z79.899 Other long term (current) drug therapy
CPT/HCPCS: 99283; A9270; 99284

== ENCOUNTER 2025-03-16 13:47 | Emergency (ER) | payer MEDICARE, OTHER ==
[2025-03-16] MEDS ORDERED: Sodium Chloride 0.9% 10 ML Syringe FLUSH PRN (14:05)
[2025-03-16 14:08] VITALS: BP 176/92; PULSE 71
[2025-03-16 14:12] LABS: BASOPHILS PERCENT AUTO 0.3 % (0.0-1.0); EOSINOPHILS PERCENT AUTO 0.6 % (1.0-3.0); LYMPHOCYTES PERCENT AUTO 25.0 % (20.5-50.1); MONOCYTES PERCENT AUTO 6.6 % (2-8); NEUTROPHILS PERCENT AUTO 67.5 % (42.2-75.2); PLATELET COUNT,PLT 199 10^3/uL (150-450); RED BLOOD CELL COUNT 4.83 10^6/uL (4.2-5.4); WHITE BLOOD CELL COUNT,WBC 10.7 10^3/uL (5.0-10.0)
[2025-03-16 14:21] LABS: INR 1.1 (0.9-1.2)
[2025-03-16 14:29] LABS: A/G RATIO 1.1; ALANINE AMINOTRANSFERASE,ALT 26.0 U/L (14-59); ASPARTATE AMNIOTRANSFERASE,AST 20.0 U/L (15-37); BILIRUBIN TOTAL 1.1 mg/dL (0.2-1.0); BLOOD UREA NITROGEN,BUN 7.0 mg/dL (7-18); CARBON DIOXIDE,CO2 26.0 mmol/L (21-32); CHLORIDE,CL 102.0 mmol/L (98-107); CREATININE 0.74 mg/dL (0.55-1.02); EST CRCL DRUG DOSING (CG) 63.65 mL/min; GLUCOSE RANDOM 113.0 mg/dL (70-99); POTASSIUM,K 3.7 mmol/L (3.5-5.1); PROTEIN TOTAL,TP 7.8 g/dL (6.4-8.2); SODIUM,NA 138.0 mmol/L (136-145)
[2025-03-16 14:30] LABS: ESTIMATED GFR 87.0 mL/min (>=60)
== END 2025-03-16 14:50 | disposition home or self-care (01) ==
LOC: DL.ED 13:47
DX: R07.89 Other chest pain (principal); I48.91 Unspecified atrial fibrillation; E78.00 Pure hypercholesterolemia, unspecified; I10 Essential (primary) hypertension; E11.9 Type 2 diabetes mellitus without complications; J44.9 Chronic obstructive pulmonary disease, unspecified; Z88.5 Allergy status to narcotic agent; Z88.8 Allergy status to other drugs, medicaments and biological substances; Z79.899 Other long term (current) drug therapy
CPT/HCPCS: 36415; 71046; 80053; 83690; 83735; 84484; 85025; 85610; 93005; 99285